=== PATIENT | male | born 1990 | race Caucasian/White ===

== ENCOUNTER 2020-04-30 10:32 | Emergency (ER) | payer BC, OTHER ==
[2020-04-30] MEDS ORDERED: Lidocaine 2% 20 ML MDV INFILT ONE (10:33)
--- NOTE | 2020-04-30 11:36 | EDM.PDOC ---
ED HPI GENERAL MEDICAL PROBLEM - General Stated Complaint: FINGER LACERATION Time Seen by Provider: 04/30/20 11:50 Source of Information: Reports: Patient History Limitations: Reports: No Limitations - History of Present Illness INITIAL COMMENTS - FREE TEXT/NARRATIVE: Patient presented to the ED because of left 3rd finger injury with a chain saw. He sustained a 2 cm laceration and is able to extend and flex his finger without any injury. Review of Systems - Review of Systems Review Of Systems: See Below Constitutional: Reports: No Symptoms Eyes: Reports: No Symptoms Ears: Reports: No Symptoms Nose: Reports: No Symptoms Mouth/Throat: Reports: No Symptoms Respiratory: Reports: No Symptoms Cardiovascular: Reports: No Symptoms GI/Abdominal: Reports: No Symptoms Genitourinary: Reports: No Symptoms Musculoskeletal: Reports: No Symptoms Skin: Reports: Wound Neurological: Reports: No Symptoms ED EXAM, GENERAL - Physical Exam Exam: See Below Exam Limited By: No Limitations General Appearance: Alert, No Apparent Distress Eye Exam: Bilateral Eye: PERRL Ears: Normal External Exam, Normal Canal Nose: Normal Inspection, Normal Mucosa, No Blood Throat/Mouth: Normal Inspection, Normal Lips, Normal Teeth, Normal Gums Head: Atraumatic, Normocephalic Neck: Normal Inspection, Supple, Non-Tender, Full Range of Motion Respiratory/Chest: No Respiratory Distress, Lungs Clear, Normal Breath Sounds Cardiovascular: Normal Peripheral Pulses, Regular Rate, Rhythm, No Edema, No Gallop Back Exam: Normal Inspection, Full Range of Motion Extremities: Normal Inspection, Normal Range of Motion Neurological: Alert, Oriented ED TRAUMA EXTREMITY PROCEDURES - Laceration/Wound Repair Left Digit - 3rd (Middle) Lac/Wound Length In cm: 2 Appearance: Superficial Distal NVT: Neuro & Vascular Intact Anesthetic Type: Local Local Anesthesia - Lidocaine (Xylocaine): 2% Plain Local Anesthetic Volume: 2cc Skin Prep: Chlorhexidine (Hibiciens) Closed With: Sutures Suture Size: 3-0 Suture Type: Nylon # of Sutures: 5 Course - Vital Signs Text/Narrative:: Tdap Last Recorded V/S: Last Vital Signs Temp 36.6 C 04/30/20 11:50 Pulse 69 04/30/20 11:50 Resp 18 04/30/20 11:50 BP 138/81 04/30/20 11:50 Pulse Ox 98 04/30/20 11:50 - Orders/Labs/Meds Orders: Active Orders 24 hr Category Date Time Status Vaccines to be Administered [RC] PER UNIT ROUTINE Care 04/30/20 11:33 Active Meds: Medications Discontinued Medications Generic Name Dose Route Start Last Admin Trade Name Dennise PRN Reason Stop Dose Admin Diphtheria/Tetanus/Acell Pertussis 0.5 ml 04/30/20 11:32 04/30/20 11:53 Boostrix IM 04/30/20 11:33 0.5 ml .ONCE ONE Administration Departure - Departure Time of Disposition: 11:35 Disposition: Home, Self-Care 01 Condition: Good Clinical Impression: Finger laceration - Discharge Information Instructions: Laceration Care, Adult Additional Instructions: Please read discharge instructions on laceration and wound care Removal of suture after 10-14 days Take ibupeofen 800 mg with tylenol 1000 mg every 8 hours as needed for pain. Cover your wound when you're at work, keep it air dry without covering it at home Sepsis Event Note (ED) - Focused Exam Vital Signs: Vital Signs Temp Pulse Resp BP Pulse Ox 04/30/20 11:50 36.6 C 69 18 138/81 98 - My Orders Last 24 Hours: My Active Orders 04/30/20 11:33 Vaccines to be Administered [RC] PER UNIT ROUTINE - Assessment/Plan Last 24 Hours: My Active Orders 04/30/20 11:33 Vaccines to be Administered [RC] PER UNIT ROUTINE
[2020-04-30] MEDS: Diphtheria,Pertussis(Acell),Tetanus Vaccine 0.5 ML Syringe IM ONE (11:53)
== END 2020-04-30 12:05 | disposition home or self-care (01) ==
LOC: FB.ED 10:32
DX: S61.213A Laceration without foreign body of left middle finger without damage to nail, initial encounter (principal); Z23 Encounter for immunization; W29.3XXA Contact with powered garden and outdoor hand tools and machinery, initial encounter
CPT/HCPCS: 12001; 90471; 90715; 99282; J2001